=== PATIENT | female | born 1935 | race Caucasian/White ===

== ENCOUNTER → 2023-08-05 08:58 | Outpatient (REF) | payer MEDICARE, BC, SELFPAY | LOC: WDC 08:58 | PROVIDERS: ATTENDING PHYSICIAN Obstetrics & Gynecology Gynecology; FAMILY PHYSICIAN Internal Medicine Geriatric Medicine | DX: Z12.31 Encounter for screening mammogram for malignant neoplasm of breast (principal) | CPT/HCPCS: 77063; 77067 ==

== ENCOUNTER → 2024-01-29 11:49 | Outpatient (REF) | payer MEDICARE, BC, SELFPAY | LOC: RAD 11:49 | PROVIDERS: ATTENDING PHYSICIAN Nurse Practitioner Family | DX: M79.671 Pain in right foot (principal) | CPT/HCPCS: 73630 ==

== ENCOUNTER → 2024-03-25 12:52 | Outpatient (REF) | payer MEDICARE, BC, SELFPAY | LOC: RAD 12:52 | PROVIDERS: ATTENDING PHYSICIAN Internal Medicine Geriatric Medicine | DX: Z78.0 Asymptomatic menopausal state (principal) | CPT/HCPCS: 77080 ==